=== PATIENT | female | born 1980 | race Caucasian/White ===

== ENCOUNTER 2018-02-04 11:35 | Inpatient (IN) | payer SELFPAY ==
[~2018-02-04] VITALS: Ht 167.6 cm; Wt 104.3 kg
[2018-02-04] MEDS ORDERED: LR 1,000 ML IV ONE (11:59)
[2018-02-04] MEDS ORDERED: CEFAZOLIN 2 GM IVPB PREMIX 50 ML IV ONE (12:00)
[2018-02-04 12:05] VITALS: BP_SYST 133
[2018-02-04 12:39] LABS: BASOPHILS # (AUTO) 0.1 K/uL (0.0-0.2); BASOPHILS % (AUTO) 0.7 % (0.0-2.0); EOSINOPHILS % (AUTO) 0.2 % (0.0-4.0); HEMATOCRIT 32.4 % (36-48); HEMOGLOBIN 10.4 g/dL (12.0-16.0); LYMPHOCYTES # (AUTO) 1.5 K/uL (1.0-5.5); LYMPHOCYTES % (AUTO) 17.7 % (20.5-51.5); MEAN CORPUSCULAR HEMOGLOBIN 25 pg (27-31); MEAN CORPUSCULAR HGB CONC 32 % (32-36); MEAN CORPUSCULAR VOLUME 77 fL (79.0-98.0); MONOCYTES # (AUTO) 0.5 K/uL (0.0-1.0); MONOCYTES % (AUTO) 5.7 % (1.7-9.3); NEUTROPHILS # (AUTO) 6.7 K/uL (1.8-7.7); NEUTROPHILS % (AUTO) 75.7 % (40.0-70.0); PLATELET COUNT (AUTO) 262 K/uL (130-430); RED BLOOD CELL COUNT(AUTO) 4.18 MIL/uL (4.2-6.2); RED CELL DISTRIBUTION WIDTH 14.7 % (9.0-15.0); WHITE BLOOD COUNT (AUTO) 8.8 K/uL (4.8-10.8)
[2018-02-04] MEDS ORDERED: ePHEDrine sulfate 50 MG/ML VIAL IVP ONE (14:41)
[2018-02-04] MEDS ORDERED: BUPIVACAINE /PF 0.75% 10 ML VIAL INJ ONE (14:41)
[2018-02-04] MEDS ORDERED: LR 1,000 ML IV.SOLN IV ONE (14:41)
[2018-02-04] MEDS ORDERED: LIDOCAINE 1% 10 MG/ML, 20 ML MDV INJ ONE (14:41)
[2018-02-04] MEDS ORDERED: MORPHINE SULFATE 10MG/10ML PF AMP EP ONE (14:41)
[2018-02-04] MEDS ORDERED: NS IRRIG SOLN 1000 ML IR ONE (14:41)
[2018-02-04] MEDS ORDERED: OXYTOCIN/0.9 % SODIUM CHLORIDE 1,000 ML IV ONE (15:31)
[2018-02-04] MEDS ORDERED: DOCUSATE SODIUM 100 MG CAPSULE PO PRN (15:45)
[2018-02-04] MEDS ORDERED: PROMETHAZINE HCL 25 MG/ML AMP IM PRN (15:45)
[2018-02-04] MEDS ORDERED: HYDROcodone/ACETAMIN 5-325 MG TAB (NORCO/ VICODIN) PO PRN (15:45)
[2018-02-04] MEDS ORDERED: SENNOSIDES/DOCUSATE SODIUM 1 TAB TABLET(SENOKOT-S) PO PRN (15:45)
[2018-02-04] MEDS ORDERED: LANOLIN 7 GM OINT. TP PRN (15:45)
[2018-02-04] MEDS ORDERED: MEPERIDINE HCL/PF 100 MG/ML AMP IM PRN (15:45)
[2018-02-04] MEDS ORDERED: OXYCODONE/ACETAMINOPHEN 5-325 TABLET PO PRN ×2 (15:45)
[2018-02-04] MEDS ORDERED: BISACODYL 10 MG/SUPPOSITORY RC PRN (15:45)
[2018-02-04] MEDS ORDERED: KETOROLAC TROMETHAMINE 30 MG VIAL ONE (15:59)
[2018-02-04] MEDS ORDERED: IBUPROFEN 600 MG TABLET PO SCH (18:00)
[2018-02-04] MEDS ORDERED: TEMAZEPAM 15 MG CAPSULE PO PRN (21:00)
[2018-02-04] MEDS: CEFAZOLIN 1 GM IVPB PREMIX 50 ML IV SCH (22:30)
[2018-02-04] MEDS: LR 1,000 ML IV SCH (23:30)
[2018-02-05] MEDS: KETOROLAC TROMETHAMINE 30 MG VIAL IVP SCH ×4 (00:05→14:32)
[2018-02-05] MEDS: SIMETHICONE 80 MG TAB.CHEW PO PRN ×2 (00:06→21:31)
[2018-02-05] MEDS: CEFAZOLIN 1 GM IVPB PREMIX 50 ML IV SCH ×2 (04:20→10:10)
[2018-02-05 06:32] LABS: BASOPHILS % (AUTO) 0.4 % (0.0-2.0); EOSINOPHILS # (AUTO) 0.1 K/uL (0.0-0.4); EOSINOPHILS % (AUTO) 0.7 % (0.0-4.0); HEMATOCRIT 27.7 % (36-48); HEMOGLOBIN 9.1 g/dL (12.0-16.0); LYMPHOCYTES # (AUTO) 1.7 K/uL (1.0-5.5); LYMPHOCYTES % (AUTO) 18.4 % (20.5-51.5); MEAN CORPUSCULAR HEMOGLOBIN 25 pg (27-31); MEAN CORPUSCULAR HGB CONC 33 % (32-36); MEAN CORPUSCULAR VOLUME 77 fL (79.0-98.0); MONOCYTES # (AUTO) 0.4 K/uL (0.0-1.0); MONOCYTES % (AUTO) 4.8 % (1.7-9.3); NEUTROPHILS # (AUTO) 6.9 K/uL (1.8-7.7); NEUTROPHILS % (AUTO) 75.7 % (40.0-70.0); PLATELET COUNT (AUTO) 248 K/uL (130-430); RED BLOOD CELL COUNT(AUTO) 3.62 MIL/uL (4.2-6.2); RED CELL DISTRIBUTION WIDTH 14.8 % (9.0-15.0); WHITE BLOOD COUNT (AUTO) 9.1 K/uL (4.8-10.8)
[2018-02-05] MEDS: LR 1,000 ML IV SCH (08:29)
[2018-02-05] MEDS: IBUPROFEN 600 MG TABLET PO SCH (17:46)
[2018-02-06] MEDS: IBUPROFEN 600 MG TABLET PO SCH ×2 (00:06→06:13)
== END 2018-02-06 10:00 | disposition home or self-care (01) | DRG 766 ==
LOC: SPU 11:35
PROVIDERS: ADMIT Specialist; ATTEND Specialist
PROC: 10D00Z1 Extraction of Products of Conception, Low, Open Approach (ICD-10-PCS; principal; 2018-02-04 13:30)
DX: O34.211 Maternal care for low transverse scar from previous cesarean delivery (principal); Z37.0 Single live birth; Z3A.39 39 weeks gestation of pregnancy
CPT/HCPCS: 36415; 85025; 86592; 86886; 86900; 86901; 94760; J0690; J1885; J2001; J2175; J2274; J2550; J3490; J7120